=== PATIENT | female | born 1955 | race American Indian/Alaskan Native ===

== ENCOUNTER 2016-11-12 12:22 | Emergency (ER) | payer OTHER ==
[2016-11-12 13:21] VITALS: BP 145/80
--- NOTE | 2016-11-12 13:59 | Emergency Department Report ---
ED Fall HPI - General Chief Complaint: Fall Stated Complaint: FALL Time Seen by Provider: 11/12/16 13:49 Source: patient Mode of arrival: Ambulatory - History of Present Illness Initial Comments: pt reports falling 3d ago at the store, landing on her bottom and her hands. Reports intermittent soreness to R leg, L mid-back, R wrist/hand, and R shoulder /R side of neck. No head injury/LOC. No numbness. MD Complaint: fall -: Sudden, days(s) (3) Fall From: standing Fall Witnessed: yes, by bystander Place Fall Occurred: other Loss of Consciousness: none Prolonged Down Time?: no Symptoms Prior to Fall: none Location: buttocks Location - Extremities: Right: Shoulder, Hand, Thigh Severity: moderate Severity scale (0 -10): 6 Quality: aching Context: tripped/slipped Associated Symptoms: denies - Related Data Previous Rx's Medication Instructions Recorded Last Taken Type Cyclobenzaprine [Flexeril] 10 mg PO TID PRN #15 tablet 11/12/16 Unknown Rx Naproxen [Naprosyn] 500 mg PO BID #20 tablet 11/12/16 Unknown Rx Allergies Allergy/AdvReac Type Severity Reaction Status Date / Time lisinopril Allergy Swelling Verified 11/12/16 13:15 ED Review of Systems ROS: Stated complaint: FALL Other details as noted in HPI Comment: All other systems reviewed and negative Constitutional: denies: chills, fever Eyes: denies: eye pain, eye discharge, vision change ENT: denies: ear pain, throat pain Respiratory: denies: cough, shortness of breath, wheezing Cardiovascular: denies: chest pain, palpitations Endocrine: no symptoms reported Gastrointestinal: denies: abdominal pain, nausea, diarrhea Genitourinary: denies: urgency, dysuria, discharge Musculoskeletal: as per HPI, back pain, arthralgia, myalgia. denies: joint swelling Skin: denies: rash, lesions Neurological: denies: headache, weakness, paresthesias Psychiatric: denies: anxiety, depression Hematological/Lymphatic: denies: easy bleeding, easy bruising ED Past Medical Hx - Past Medical History Hx Hypertension: Yes - Surgical History Additional Surgical History: Ovarian Cyst - Social History Smoking Status: Current Every Day Smoker Substance Use Type: Alcohol - Medications Home Medications: Home Medications Medication Instructions Recorded Confirmed Last Taken Type Cyclobenzaprine [Flexeril] 10 mg PO TID PRN #15 tablet 11/12/16 Unknown Rx Naproxen [Naprosyn] 500 mg PO BID #20 tablet 11/12/16 Unknown Rx ED Physical Exam - General Limitations: No Limitations General appearance: alert, in no apparent distress - Head Head exam: Present: atraumatic, normocephalic - Eye Eye exam: Present: normal appearance, PERRL, EOMI Pupils: Present: normal accommodation - ENT ENT exam: Present: normal orophraynx, mucous membranes moist - Neck Neck exam: Present: normal inspection, tenderness (R lateral), full ROM - Respiratory Respiratory exam: Present: normal lung sounds bilaterally. Absent: respiratory distress, wheezes - Cardiovascular Cardiovascular Exam: Present: regular rate, normal rhythm. Absent: systolic murmur, diastolic murmur, rubs, gallop - GI/Abdominal GI/Abdominal exam: Present: soft, normal bowel sounds. Absent: distended, tenderness, guarding - Extremities Exam Extremities exam: Present: normal inspection, other (Full ROM to LE joints- no swelling or tenderness. R shoulder is tender, with full ROM and no swelling. R wrist shows mild tenderness but full ROM and no swelling. No snuffbox tenderness. CMS intact.) - Back Exam Back exam: Present: normal inspection, tenderness (L mid-back. No midline tenderness. ) - Neurological Exam Neurological exam: Present: alert, oriented X3, normal gait, reflexes normal. Absent: motor sensory deficit - Psychiatric Psychiatric exam: Present: normal affect, normal mood - Skin Skin exam: Present: warm, dry, intact, normal color. Absent: rash ED Course Vital Signs 11/12/16 13:15 Temperature 98.3 F Pulse Rate 65 Respiratory 18 Rate Blood Pressure 145/80 O2 Sat by Pulse 100 Oximetry - Reevaluation(s) Reevaluation #1: 11/12/16 14:29 NAD, stable for d/c. ED Medical Decision Making - Radiology Data Radiology results: report reviewed naf - Medical Decision Making Pt with contusions from prior fall. No fx on imaging. Follow up advised. - Differential Diagnosis contusion, strain/sprain, fx Critical care attestation.: If time is entered above; I have spent that time in minutes in the direct care of this critically ill patient, excluding procedure time. ED Disposition Clinical Impression: Multiple contusions, Muscle spasm Disposition: DISCHARGED TO HOME OR SELFCARE Is pt being admited?: No Condition: Good Instructions: Muscle Strain (ED), Muscle Spasm (ED) Prescriptions: Cyclobenzaprine [Flexeril] 10 mg PO TID PRN #15 tablet PRN Reason: Muscle Spasm Naproxen [Naprosyn] 500 mg PO BID #20 tablet Referrals: PRIMARY CARE, [Primary Care Provider] - 3-5 Days NIDHI ENAMORADO MD [Staff Physician] - 3-5 Days Time of Disposition: 14:31
--- NOTE | 2016-11-12 14:21 | XRay Report ---
Right shoulder 3 views: History: Pain. Findings Severe arthritic changes of the a.c. joint with mild arthritic changes of the glenohumeral joint. Normal acromiohumeral space. No soft tissue calcification. Impression: Arthritic changes as described. No acute findings.
--- NOTE | 2016-11-12 14:22 | XRay Report ---
Right wrist 3 views: History: Pain. Findings: No bony or articular abnormality. No fracture or dislocation at the radiocarpal joints. Arthritic changes are noted at the first carpometacarpal joint. Impression: Arthritic changes at the first carpometacarpal joint.
== END 2016-11-12 14:57 | disposition home or self-care (01) ==
LOC: ED 12:22
DX: T14.90 Injury, unspecified (principal); M62.838 Other muscle spasm; I10 Essential (primary) hypertension; F17.200 Nicotine dependence, unspecified, uncomplicated; X58.XXXA Exposure to other specified factors, initial encounter; Y93.9 Activity, unspecified; Y92.9 Unspecified place or not applicable; Y99.9 Unspecified external cause status
CPT/HCPCS: 99283